=== PATIENT | female | born 1975 | race American Indian/Alaskan Native ===

== ENCOUNTER 2018-07-09 01:42 | Emergency (ER) | payer SELFPAY ==
[2018-07-09] MEDS ORDERED: ASPIRIN PO ONE (02:14)
[2018-07-09 03:09] LABS: Basophils % (Auto) 0.6 % (0.0-1.8); Eosinophils % (Auto) 0.9 % (0.0-4.3); Hematocrit 39.1 % (30.3-42.9); Hemoglobin 12.8 gm/dl (10.1-14.3); Lymphocytes % (Auto) 36.5 % (13.4-35.0); Mean Corpuscular HGB Conc 33 % (30-34); Mean Corpuscular Hemoglobin 30 pg (28-32); Mean Corpuscular Volume 93 fl (79-97); Monocytes # (Auto) 0.7 K/mm3 (0.0-0.8); Monocytes % (Auto) 12.4 % (0.0-7.3); Platelet Count 255 K/mm3 (140-440); Red Blood Count 4.21 M/mm3 (3.65-5.03); Red Cell Distribution Width 13.7 % (13.2-15.2)
--- NOTE | 2018-07-09 03:13 | XRay Report ---
FINAL REPORT PROCEDURE: XR CHEST ROUTINE 2V TECHNIQUE: PA and lateral chest radiographs were obtained. CPT 48889 HISTORY: Chest Pain COMPARISON: No prior studies are available for comparison. FINDINGS: Heart: Normal. Mediastinum/Vessels: Normal. Lungs/Pleural space: Normal. Bony thorax: No acute osseous abnormality. Other: IMPRESSION: Normal examination.
[2018-07-09 04:15] LABS: BUN/Creatinine Ratio 12; Blood Urea Nitrogen 11 mg/dL (7-17); Calcium 9.2 mg/dL (8.4-10.2); Hemolysis Index 12
[2018-07-09 07:42] VITALS: BP 155/107
--- NOTE | 2018-07-09 09:41 | Emergency Department Report ---
ED Chest Pain HPI - General Chief Complaint: Chest Pain Stated Complaint: CHEST PAIN Time Seen by Provider: 07/09/18 09:21 Source: patient Mode of arrival: Ambulatory Limitations: No Limitations - History of Present Illness Initial Comments: Patient is a 43-year-old female who is presenting with chest pain. Patient states she was having some off and on chest pain for the past 2 weeks has been more consistent for the past 2 days. Patient states is a heavy sensation chest. Patient has a past medical history of hypertension and coronary disease and has 2 stents. Patient's last cardiac cath was in 2017 which was normal. Patient had has had off-and-on chest pain since stents placed. Patient states pain is just slightly worse last several weeks. Patient denies any nausea vomiting diaphoresis fevers chills cough, congestion. Patient states pain is not exertional. When she gets the pain is patient states pain is 10 out of 10. Patient's been noncompliant with all of her medications including Plavix. - Related Data Home Medications Medication Instructions Recorded Confirmed Last Taken Lisinopril [Zestril] 2.5 mg PO BID 01/25/16 01/25/16 01/24/16 2.5mg Previous Rx's Medication Instructions Recorded Last Taken Type Digoxin [Lanoxin] 0.125 mg PO DAILY #30 tablet 03/14/14 01/24/16 Rx 0.125mg Propylthiouracil 100 mg PO TID #90 tablet 03/14/14 01/24/16 Rx 100mg Ondansetron [Zofran Odt] 4 mg PO Q8H PRN #12 tab.rapdis 07/13/15 01/24/16 Rx 4mg Aspirin [Aspirin BABY CHEW TAB] 81 mg PO DAILY #30 tab.chew 07/09/18 Unknown Rx Carvedilol [Coreg] 3.125 mg PO BID #60 tablet 07/09/18 Unknown Rx Clopidogrel Bisulfate [Plavix] 75 mg PO DAILY #30 tablet 07/09/18 Unknown Rx Hydrochlorothiazide [HCTZ] 12.5 mg PO DAILY #30 capsule 07/09/18 Unknown Rx Pravastatin [Pravachol] 40 mg PO DAILY #30 tablet 07/09/18 Unknown Rx Allergies Allergy/AdvReac Type Severity Reaction Status Date / Time morphine Allergy Vomiting Verified 01/25/16 07:07 Heart Score - HEART Score History: Slightly suspicious EKG: Non-specific Age: < 45 Risk factors: > 3 risk factors or hx of atherosclerotic disease Troponin: < normal limit HEART Score: 3 ED Review of Systems ROS: Stated complaint: CHEST PAIN Other details as noted in HPI Comment: All other systems reviewed and negative ED Past Medical Hx - Past Medical History Hx Hypertension: Yes Hx Congestive Heart Failure: Yes Additional medical history: hyperthyroidism, hyperlipidemia. CAD - Surgical History Hx Coronary Stent: Yes (x2) Additional Surgical History: Tubal ligation and , Cardiac Cath. - Social History Smoking Status: Never Smoker Substance Use Type: None - Medications Home Medications: Home Medications Medication Instructions Recorded Confirmed Last Taken Type Digoxin [Lanoxin] 0.125 mg PO DAILY #30 tablet 03/14/14 01/25/16 01/24/16 Rx 0.125mg Propylthiouracil 100 mg PO TID #90 tablet 03/14/14 01/25/16 01/24/16 Rx 100mg Ondansetron [Zofran Odt] 4 mg PO Q8H PRN #12 tab.rapdis 07/13/15 01/25/16 Rx 4mg Lisinopril [Zestril] 2.5 mg PO BID 01/25/16 01/25/16 01/24/16 History 2.5mg Aspirin [Aspirin BABY CHEW TAB] 81 mg PO DAILY #30 tab.chew 07/09/18 Unknown Rx Carvedilol [Coreg] 3.125 mg PO BID #60 tablet 07/09/18 Unknown Rx Clopidogrel Bisulfate [Plavix] 75 mg PO DAILY #30 tablet 07/09/18 Unknown Rx Hydrochlorothiazide [HCTZ] 12.5 mg PO DAILY #30 capsule 07/09/18 Unknown Rx Pravastatin [Pravachol] 40 mg PO DAILY #30 tablet 07/09/18 Unknown Rx ED Physical Exam - General Limitations: No Limitations General appearance: alert, in no apparent distress - Head Head exam: Present: atraumatic, normocephalic - Eye Eye exam: Present: normal appearance - ENT ENT exam: Present: mucous membranes moist - Neck Neck exam: Present: normal inspection - Respiratory Respiratory exam: Present: normal lung sounds bilaterally. Absent: respiratory distress, wheezes, rales, rhonchi - Cardiovascular Cardiovascular Exam: Present: regular rate, normal rhythm, normal heart sounds. Absent: systolic murmur, diastolic murmur, rubs, gallop - GI/Abdominal GI/Abdominal exam: Present: soft, normal bowel sounds. Absent: distended, tenderness, guarding, rebound - Extremities Exam Extremities exam: Present: normal inspection - Back Exam Back exam: Present: normal inspection - Neurological Exam Neurological exam: Present: alert, oriented X3 - Psychiatric Psychiatric exam: Present: normal affect, normal mood - Skin Skin exam: Present: warm, dry, intact, normal color. Absent: rash ED Course Vital Signs 07/09/18 07/09/18 07/09/18 01:53 02:10 07:41 Temperature 98.1 F 98.1 F 97.9 F Pulse Rate 88 86 89 Respiratory 18 18 18 Rate Blood Pressure 143/100 143/100 Blood Pressure 155/107 [Right] O2 Sat by Pulse 98 98 100 Oximetry DEV score - Dev Score Age > 65: (0) No Aspirin use within the Past 7 Days: (0) No 3 or more CAD Risk Factors: (1) Yes 2 or more Angina events in past 24 hrs: (1) Yes Known CAD with more than 50% Stenosis: (0) No Elevated Cardiac Markers: (0) No ST Deviation Greater than 0.5mm: (0) No DEV Score: 2 ED Medical Decision Making - Lab Data Result diagrams: 07/09/18 02:28 07/09/18 02:28 Lab Results 07/09/18 07/09/18 07/09/18 Range/Units 02:28 02:28 04:54 WBC 5.6 (4.5-11.0) K/mm3 RBC 4.21 (3.65-5.03) M/mm3 Hgb 12.8 (10.1-14.3) gm/dl Hct 39.1 (30.3-42.9) % MCV 93 (79-97) fl MCH 30 (28-32) pg MCHC 33 (30-34) % RDW 13.7 (13.2-15.2) % Plt Count 255 (140-440) K/mm3 Lymph % (Auto) 36.5 H (13.4-35.0) % [place] % (Auto) 12.4 H (0.0-7.3) % Eos % (Auto) 0.9 (0.0-4.3) % Baso % (Auto) 0.6 (0.0-1.8) % Lymph # 2.0 (1.2-5.4) K/mm3 [place] # 0.7 (0.0-0.8) K/mm3 Eos # 0.0 (0.0-0.4) K/mm3 Baso # 0.0 (0.0-0.1) K/mm3 Seg Neutrophils % 49.6 (40.0-70.0) % Seg Neutrophils # 2.8 (1.8-7.7) K/mm3 Sodium 142 (137-145) mmol/L Potassium 4.0 (3.6-5.0) mmol/L Chloride 102.5 (98-107) mmol/L Carbon Dioxide 25 (22-30) mmol/L Anion Gap 19 mmol/L BUN 11 (7-17) mg/dL Creatinine 0.9 (0.7-1.2) mg/dL Estimated GFR > 60 ml/min BUN/Creatinine Ratio 12 % Glucose 99 (65-100) mg/dL Calcium 9.2 (8.4-10.2) mg/dL Troponin T < 0.010 < 0.010 (0.00-0.029) ng/mL 07/09/18 Range/Units 08:04 WBC (4.5-11.0) K/mm3 RBC (3.65-5.03) M/mm3 Hgb (10.1-14.3) gm/dl Hct (30.3-42.9) % MCV (79-97) fl MCH (28-32) pg MCHC (30-34) % RDW (13.2-15.2) % Plt Count (140-440) K/mm3 Lymph % (Auto) (13.4-35.0) % [place] % (Auto) (0.0-7.3) % Eos % (Auto) (0.0-4.3) % Baso % (Auto) (0.0-1.8) % Lymph # (1.2-5.4) K/mm3 [place] # (0.0-0.8) K/mm3 Eos # (0.0-0.4) K/mm3 Baso # (0.0-0.1) K/mm3 Seg Neutrophils % (40.0-70.0) % Seg Neutrophils # (1.8-7.7) K/mm3 Sodium (137-145) mmol/L Potassium (3.6-5.0) mmol/L Chloride (98-107) mmol/L Carbon Dioxide (22-30) mmol/L Anion Gap mmol/L BUN (7-17) mg/dL Creatinine (0.7-1.2) mg/dL Estimated GFR ml/min BUN/Creatinine Ratio % Glucose (65-100) mg/dL Calcium (8.4-10.2) mg/dL Troponin T < 0.010 (0.00-0.029) ng/mL - EKG Data -: EKG Interpreted by Me - EKG Data 07/09/18 09:40 EKG shows sinus rhythm rate of 89 normal axis normal intervals no ST elevation or depressions there are T-wave inversions in the lateral leads, interpretation is 148. This compared to previous EKGs showsno acute change - Radiology Data Chest x-ray within normal limits - Medical Decision Making The patient is a 43-year-old black female past medical history of coronary disease hypertension is Dr. Bonny trinidad. Patient believes her chest discomfort is secondary to not taking her medications. Patient's had 3 negative troponins here in the emergency department and ruled out for [place]. 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 Medications prescribed for the patient. Patient stable for outpatient therapy. Patient states pain is improved since she's been here throughout the night. Patient has no shortness of breath. Critical care attestation.: If time is entered above; I have spent that time in minutes in the direct care of this critically ill patient, excluding procedure time. ED Disposition Clinical Impression: Chest pain Qualifiers: Chest pain type: unspecified Qualified Code(s): R07.9 - Chest pain, unspecified Disposition: DC-01 TO HOME OR SELFCARE Is pt being admited?: No Does the pt Need Aspirin: No Condition: Stable Instructions: Chest Pain (ED) Additional Instructions: Please make an appointment to see a tool distributor in the next several days Prescriptions: Aspirin [Aspirin BABY CHEW TAB] 81 mg PO DAILY #30 tab.chew Carvedilol [Coreg] 3.125 mg PO BID #60 tablet Clopidogrel Bisulfate [Plavix] 75 mg PO DAILY #30 tablet Hydrochlorothiazide [HCTZ] 12.5 mg PO DAILY #30 capsule Pravastatin [Pravachol] 40 mg PO DAILY #30 tablet Referrals: DARRELL RAINES NP-C [Primary Care Provider] - 3-5 Days Time of Disposition: 09:43
== END 2018-07-09 09:59 | disposition home or self-care (01) ==
LOC: ED 01:42
DX: R07.89 Other chest pain (principal); I10 Essential (primary) hypertension; I50.9 Heart failure, unspecified; E05.90 Thyrotoxicosis, unspecified without thyrotoxic crisis or storm; E78.5 Hyperlipidemia, unspecified; Z98.51 Tubal ligation status; Z95.818 Presence of other cardiac implants and grafts; Z88.6 Allergy status to analgesic agent
CPT/HCPCS: 36415; 71046; 80048; 84484; 85025; 93005; 93010